=== PATIENT | female | born 1950 | race African-American/Black ===

== ENCOUNTER 2019-10-19 00:02 | Emergency (ER) | payer OTHER ==
[2019-10-19] MEDS ORDERED: ACETAMINOPHEN 325 MG TABLET PO ONE (02:49)
[2019-10-19 02:50] LABS: ABSOLUTE EOSINOPHILS # (AUTO) 0.1 10^3/uL (0.0-0.6); ABSOLUTE MONOCYTES (AUTO) 0.7 10^3/uL (0.1-1.4); ABSOLUTE NEUT (AUTO) 6.4 10^3/uL (1.7-8.2); BASOPHILS % (AUTO) 0.2 % (0-2); EOSINOPHILS % (AUTO) 1.3 % (0-6); HEMATOCRIT 36.4 % (36.0-47.0); HEMOGLOBIN 11.8 g/dL (12.0-15.5); LYMPHOCYTES % (AUTO) 21.6 % (13-45); MEAN CORPUSCULAR HEMOGLOBIN 26.4 pg (27.0-33.4); MEAN CORPUSCULAR HGB CONC 32.4 g/dL (32.0-36.0); MEAN CORPUSCULAR VOLUME 82 fl (80-97); MONOCYTES % (AUTO) 7.2 % (3-13); PLATELET COUNT 283 10^3/uL (150-450); RED BLOOD COUNT 4.46 10^6/uL (3.72-5.28); SEGMENTED NEUTROPHILS % (AUTO) 69.7 % (42-78); TOTAL CELLS COUNTED % (AUTO) 100 %; WHITE BLOOD COUNT 9.1 10^3/uL (4.0-10.5)
[2019-10-19 03:07] LABS: ALBUMIN 4.3 g/dL (3.5-5.0); ALKALINE PHOSPHATASE 117 U/L (38-126); ANION GAP 13 (5-19); ASPARTATE AMINO TRANSFERASE 16 U/L (14-36); BILIRUBIN,DIRECT 0.2 mg/dL (0.0-0.4); BILIRUBIN,TOTAL 0.6 mg/dL (0.2-1.3); BLOOD UREA NITROGEN 18 mg/dL (7-20); CALCIUM 9.4 mg/dL (8.4-10.2); CARBON DIOXIDE 28 mmol/L (22-30); CHLORIDE 101 mmol/L (98-107); GLUCOSE 227 mg/dL (75-110); POTASSIUM 3.8 mmol/L (3.6-5.0); TOTAL PROTEIN 7.2 g/dL (6.3-8.2)
[2019-10-19 05:28] LABS: APPEARANCE,URINE SLIGHTLY-CLOUDY; BILIRUBIN,URINE NEGATIVE (NEGATIVE); COLOR,URINE YELLOW; GLUCOSE, URINE 50 mg/dL (NEGATIVE); KETONES,URINE TRACE mg/dL (NEGATIVE); LEUKOCYTE ESTERASE,URINE NEGATIVE (NEGATIVE); NITRITE,URINE NEGATIVE (NEGATIVE); PROTEIN,URINE 30 mg/dL (NEGATIVE); URINE SPECIFIC GRAVITY 1.036
[2019-10-19] MEDS ORDERED: DIAZEPAM 5 MG TABLET PO ONE (07:29)
--- NOTE | 2019-10-19 07:32 | ER Document Report ---
ED General - General Chief Complaint: Flank Pain Stated Complaint: RIGHT SIDE PAIN Time Seen by Provider: 10/19/19 07:08 - HPI Notes: Patient presents with right flank pain worse with movement better with rest sharp pulling in sensation. 2 nights ago she states that she twisted in bed when she felt a pull. Denies any dysuria chest pain shortness of breath cough congestion recent fevers or illnesses. She denies any weakness in her bilateral lower extremities or sensory deficits. - Related Data Allergies/Adverse Reactions: erythromycin base Allergy (Verified 10/19/19 00:59) Edema Home Medications: BP medication. asa 81mg. zyrtec Past Medical History - Social History Smoking Status: Never Smoker Chew tobacco use (# tins/day): No Frequency of alcohol use: Occasional Drug Abuse: None Family History: Reviewed & Not Pertinent Patient has suicidal ideation: No Patient has homicidal ideation: No - Past Medical History Cardiac Medical History: Reports: Hx Hypertension Pulmonary Medical History: Reports: Hx Tuberculosis - as a child Endocrine Medical History: Reports: Hx Diabetes Mellitus Type 2 Past Surgical History: Reports: Hx Section - x2, Hx Orthopedic Surgery - knee x2, Hx Tonsillectomy Review of Systems - Review of Systems Constitutional: No symptoms reported EENT: No symptoms reported Cardiovascular: No symptoms reported Respiratory: No symptoms reported Gastrointestinal: No symptoms reported Genitourinary: No symptoms reported Female Genitourinary: No symptoms reported Musculoskeletal: See HPI Skin: No symptoms reported Hematologic/Lymphatic: No symptoms reported Neurological/Psychological: No symptoms reported Physical Exam - Vital signs Vitals: Temp Pulse Resp BP Pulse Ox 98.5 F 86 18 155/70 H 96 10/19/19 00:36 10/19/19 00:36 10/19/19 00:36 10/19/19 00:36 10/19/19 00:36 - General General appearance: Appears well, Alert - HEENT Head: Normocephalic, Atraumatic - Respiratory Respiratory status: No respiratory distress Chest status: Nontender Breath sounds: Normal Chest palpation: Normal - Cardiovascular Rhythm: Regular Heart sounds: Normal auscultation Murmur: No - Abdominal Inspection: Normal Distension: No distension Bowel sounds: Normal - Back Back: Normal, Other - Point tenderness lower lumbar paraspinal musculature on the right with no erythema contusions or induration Course - Re-evaluation Re-evalutation: 10/19/19 07:32 Well-appearing patient with right paraspinal point tenderness otherwise benign exam worse with movement better with rest suggesting muscular strain. Labs drawn in triage unremarkable. Will be discharged with Valium naproxen and instructions for lower back pain. Return precautions provided - Vital Signs Vital signs: Temp Pulse Resp BP Pulse Ox 98.5 F 65 16 183/70 H 100 10/19/19 08:00 10/19/19 08:00 10/19/19 08:00 10/19/19 08:00 10/19/19 08:00 - Laboratory Result Diagrams: 10/19/19 02:40 10/19/19 02:40 Laboratory results interpreted by me: 10/19/19 10/19/19 10/19/19 02:40 02:40 04:58 Hgb 11.8 L MCH 26.4 L Est GFR ( Amer) 59 L Est GFR (MDRD) Non-Af 49 L Glucose 227 H Urine Protein 30 H Urine Glucose (UA) 50 H Urine Ketones TRACE H Urine Urobilinogen 2.0 H Discharge - Discharge Clinical Impression: Back pain Qualifiers: Back pain location: low back pain Chronicity: acute Back pain laterality: right Sciatica presence: without sciatica Qualified Code(s): M54.5 - Low back pain Condition: Good Disposition: HOME, SELF-CARE Instructions: Low Back Pain ([facility]), Stretching Exercises for the Back ([facility]), Warm Packs ([facility]) Additional Instructions: For any worsening of symptoms fever nausea vomiting please seek medical reevaluation Prescriptions: Naproxen 500 mg PO BID #10 tablet Diazepam [Valium 5 mg Tablet] 5 mg PO ASDIR PRN #15 tablet PRN Reason:
[2019-10-19 08:41] VITALS: BP 183/70
== END 2019-10-19 08:00 | disposition home or self-care (01) ==
LOC: ER 00:02
DX: M54.5 Low back pain (principal); R10.9 Unspecified abdominal pain; X50.9XXA Other and unspecified overexertion or strenuous movements or postures, initial encounter; I10 Essential (primary) hypertension; E11.9 Type 2 diabetes mellitus without complications; Z79.899 Other long term (current) drug therapy; Z79.82 Long term (current) use of aspirin; Z88.1 Allergy status to other antibiotic agents
CPT/HCPCS: 36415; 80053; 81001; 83690; 85025; 99283